=== PATIENT | female | born 1970 ===

== ENCOUNTER → 2018-07-09 21:13 | Outpatient (REF) | payer OTHER, SELFPAY ==
[2018-07-09 21:16] LABS: RBC Urine None Seen (0-5/HPF)
[2018-07-09 22:01] LABS: Add Manual Diff / Slide Review NO; Eosinophils Percent Auto 1.7 % (2-4); Hematocrit 35.9 % (36-46); Hemoglobin 11.8 g/dL (12.0-16.0); Mean Corpuscular HGB Conc 32.8 % (30-36); Mean Corpuscular Hemoglobin 28.9 PG (26-34); Mean Corpuscular Volume 88.4 fL (80-100); Monocytes Percent Auto 6.8 % (3-14); Neutrophils Absolute Auto 2200 /uL (1500-7000); Neutrophils Percent Auto 51.5 % (50-75); Platelet Count 260 X10^3/uL (150-400); Red Blood Cell Count 4.06 X10^6/uL (4.0-5.2); Red Cell Distribution Width 14.1 % (11.6-14.8); White Blood Cell Count 4.3 X10^3/uL (4.5-11.0)
[2018-07-09 22:19] LABS: Alanine Aminotransferase 26 IU/L (9-52); Albumin Globulin Ratio 1.5 (1.0-2.8); Alkaline Phosphatase 61 U/L (38-126); Aspartate Aminotransferase 24 IU/L (14-36); BUN Creatinine Ratio 14.3 (6-22); Bilirubin Total 0.3 mg/dL (0.2-1.3); Blood Urea Nitrogen 10 mg/dL (7-17); Calcium 9.5 mg/dL (8.4-10.2); Carbon Dioxide 30 mmol/L (22-32); Chloride 104 mmol/L (98-107); Cholesterol 177 mg/dL (140-199); Estimated Glomerular Filt Rate > 60.0 mL/min (>60); Globulin 2.7 g/dL (1.7-4.1); Glucose 74 mg/dL (70-100); HDL Cholesterol 52 mg/dL (40-60); HEMOLYSIS < 15 (0-50); LDL Cholesterol Calculated 107 mg/dL (<100); Potassium 4.1 mmol/L (3.4-5.1); Sodium 143 mmol/L (137-145); Total Protein 6.7 g/dL (6.3-8.2); Triglycerides 91 mg/dL (35-150)
[2018-07-09 22:25] LABS: Bilirubin Urine UA NEGATIVE (NEGATIVE); Color Urine UA YELLOW; Glucose Urine UA NEGATIVE (Normal); Ketones Urine UA NEGATIVE (NEGATIVE); Leukocyte Esterase Urine UA NEGATIVE (NEGATIVE); Nitrite Urine UA NEGATIVE (Negative); Occult Blood Urine UA NEGATIVE (Negative); Protein Urine UA NEGATIVE (Negative); Urobilinogen Urine UA 0.2 E.U./dL (0.2); pH Urine UA 6.5 (4.5-8.0)
[2018-07-10 04:06] LABS: Appearance Urine UA SL CLOUDY; Bacteria Urine Many (>30); Culture Indicated Urine Specimen Cultured; WBC Urine 0-1/HPF (0-5/HPF)
[2018-07-10 07:46] LABS: Hemoglobin A1C% w Est Avg Glu 5.6 % (4.0-6.0)
[2018-07-10 08:10] LABS: C-Reactive Protein Quant < 0.5 mg/dL (<1.0)
[2018-07-10 08:22] LABS: Free T3, Triiodothyronine Free 3.89 pg/mL (2.77-5.27); Free T4, Direct Thyroxine 0.96 ng/dL (0.78-2.19)
[2018-07-10 08:36] LABS: Thyroid Stimulating Hormone 0.43 uIU/mL (0.47-4.68)
[2018-07-12 16:13] LABS: ANA Screen, IFA Negative (Negative)
[2018-07-16 15:26] LABS: Triiodothyronine T3 Reverse 15 ng/dL (8-25)
== END ==
LOC: LAB 21:13
PROVIDERS: Visit Provider Naturopath
DX: R60.9 Edema, unspecified (principal); E78.2 Mixed hyperlipidemia; R07.9 Chest pain, unspecified; I73.00 Raynaud's syndrome without gangrene; D56.3 Thalassemia minor; R82.90 Unspecified abnormal findings in urine
CPT/HCPCS: 36415; 80053; 80061; 81001; 82728; 83036; 84439; 84443; 84481; 84482; 85025; 86038; 86140; 87077; 87086